=== PATIENT | male | born 1960 | race Caucasian/White ===

== ENCOUNTER 2018-12-01 08:46 | Inpatient (IN) | payer OTHER ==
[2018-12-01] MEDS ORDERED: ACETAMINOPHEN 1000 MG/100 ML VIAL (NON FORMULARY) IVPB ONE (09:31)
[2018-12-01] MEDS ORDERED: SODIUM CHLORIDE 1,000 ML IV STA (09:31)
--- NOTE | 2018-12-01 09:38 | PDOC ---
History of Present Illness - General Chief Complaint: Abscess Boil Stated Complaint: LT LEG BOIL Time Seen by Provider: 12/01/18 09:08 History Source: Patient Exam Limitations: No Limitations - History of Present Illness Initial Comments: 12/01/18 09:33 58 y/o male with PMH of diabetes presents to the ED with complaints of perianal/ perirecttal abscesses/ boils. Patient states that they started a few fays ago- he states that the pain is an 8/10. He tried putting warm compresses on them with little relief. He has suffered from these in the past. He was here about 3 years ago where he had to get them drained by a surgeon, and has intermittently had them about 3 more times. He denies any fevers however he does complain of slight chills. He doesn't feel that these are ready to start draining yet, however, they are very painful. he denies having any pain with urination or with bowel movements- he had a normal bowel movement this AM. he is compliant with his diabetes medications. he does have a family history of colon ca in his father, he has had 2 colonoscopies in the last 6 years both of which were normal. Timing/Duration: getting worse Modifying Factors: improves with: movement Associated Symptoms: denies: chest pain, cough, weakness Past History - Travel Traveled outside of the country in the last 30 days: No Close contact w/someone who was outside of country & ill: No - Past Medical History Allergies/Adverse Reactions: Allergies Allergy/AdvReac Type Severity Reaction Status Date / Time No Known Allergies Allergy Verified 12/01/18 09:34 Home Medications: Ambulatory Orders Canagliflozin [Invokana] 30 mg PO DAILY 02/23/15 Glimepiride 4 mg PO BID 12/01/18 Pioglitazone HCl 30 mg PO DAILY 12/01/18 COPD: No Diabetes: Yes - Family Disease History Family Disease History: CA: Father (colon) - Immunization History Immunization Up to Date: No - Suicide/Smoking/Psychosocial Hx Smoking History: Former smoker Have you smoked in the past 12 months: No Information on smoking cessation initiated: No 'Breaking Loose' booklet given: 02/25/15 Hx Alcohol Use: Yes Drug/Substance Use Hx: No Substance Use Type: None Review of Systems - Review of Systems Able to Perform ROS?: Yes Is the patient limited Spanish proficient: No Constitutional: Yes: Chills HEENTM: No: Blurred Vision Respiratory: No: Cough, Shortness of Breath Cardiac (ROS): No: Chest Pain, Palpitations : Yes: Other (perirectal/perineum abscess and pain) Musculoskeletal: No: Back Pain Neurological: No: Headache, Numbness *Physical Exam - Vital Signs Last Vital Signs Temp Pulse Resp BP Pulse Ox 98.3 F 108 H 18 121/80 95 12/01/18 08:55 12/01/18 08:55 12/01/18 08:55 12/01/18 08:55 12/01/18 08:55 - Physical Exam General Appearance: Yes: Mild Distress HEENT: positive: Normal Voice, Excessive drooling Respiratory/Chest: positive: Lungs Clear, Normal Breath Sounds Cardiovascular: positive: Regular Rhythm, Regular Rate, S1, S2 Gastrointestinal/Abdominal: positive: Normal Bowel Sounds, Flat, Soft. negative : Tender Male Genitalia: positive: other (B/L perieneum abscess with erythema ; no drainage; tenderness upon palpation) Rectal Exam: positive: normal exam, normal rectal tone. negative: hemorrhoids Musculoskeletal: negative: CVA Tenderness Extremity: positive: Normal Capillary Refill Integumentary: positive: Normal Color Neurologic: positive: Fully Oriented, Alert ED Treatment Course - RADIOLOGY Radiology Studies Ordered: Category Date Time Status PELVIS CT WITH CONTRAST [CT] Stat CT Scan 12/01/18 09:32 Ordered Medical Decision Making - Medical Decision Making 12/01/18 09:41 cbc/cmp/ck/blood cx/lactic acid IV tylneol/ fluids pelvis CT w/ contrast patient meets sepsis criteria: giving vanc/zosyn ekg/ CXR 12/01/18 10:09 *DC/Admit/Observation/Transfer - Discharge Dispostion Condition at time of disposition: Stable - Referrals Referrals: Claudio Perkins MD [Primary Care Provider] - - Patient Instructions - Post Discharge Activity
[2018-12-01] MEDS ORDERED: ACETAMINOPHEN INJECTION 100 ML IVPB ONE (09:39)
[2018-12-01] MEDS ORDERED: morphine CARPU-JECT 4 MG/1 ML DISP.SYRIN IVPUSH ONE (09:43)
--- NOTE | 2018-12-01 09:46 | PDOC ---
Attending Attestation - Resident Resident Name: Johanne Cameron - ED Attending Attestation I have performed the following: I have examined & evaluated the patient, The case was reviewed & discussed with the resident, I agree w/resident's findings & plan, Exceptions are as noted - HPI HPI: 12/01/18 16:39 Reviewed Residents HPI - Physicial Exam PE: 12/01/18 16:40 Reviewed Residents PE - Medical Decision Making 12/01/18 16:40 58 years old diabetic with perineal cellulitis and abscess below the scrotum No evidence of foreign's gangrene on CAT scan Broad-spectrum antibiotics ordered Surgery at the bedside for incision and drainage greater than 100 mL of pus drained Packed by surgery we'll admit to hospital for IV antibiotics and further management.
[2018-12-01] MEDS ORDERED: morphine SULFATE 4 MG/ML VIAL ONE (10:01)
[2018-12-01] MEDS ORDERED: VANCOMYCIN 1,000 MG in DEXTROSE 5%-WATER - 250 ML IVPB ONE (10:04)
[2018-12-01] MEDS ORDERED: PIPERACILLIN/TAZOB 3.375 GM 3.375 GM in DEXTROSE 5%-WATER - 50 ML IVPB ONE (10:04)
[2018-12-01] MEDS ORDERED: PIPERACILLIN/TAZOB 3.375 GM 3.375 GM/50 ML BAG IVPB ONE (10:25)
[2018-12-01] MEDS ORDERED: VANCOMYCIN 1 GRAM (PRE-DOCKED) 1,000 MG/250 ML BAG IVPB ONE (10:25)
[2018-12-01 10:41] LABS: BASO % 0.5 % (0-2.0); EOS % 0.4 % (0-4.5); HEMATOCRIT 46.9 % (35.4-49); HEMOGLOBIN 15.9 GM/dL (11.7-16.9); LYMPH % 13.1 % (8-40); MCH 28.6 pg (25.7-33.7); MCHC 33.9 g/dl (32.0-35.9); MEAN CELL VOLUME 84.3 fl (80-96); MEAN PLT VOLUME 7.7 fl (7.5-11.1); MONO % 7.6 % (3.8-10.2); NEUT % 78.4 % (42.8-82.8); PLATELET COUNT 281 K/MM3 (134-434); RBC 5.56 M/mm3 (4.00-5.60); RDW 13.1 % (11.9-15.9); WHITE BLOOD COUNT 12.2 K/mm3 (4.0-10.0)
[2018-12-01 11:24] LABS: ALBUMIN 3.4 g/dl (3.4-5.0); ALK PHOS 83 U/L (45-117); ANION GAP 10 MMOL/L (8-16); BILIRUBIN,TOTAL 0.9 mg/dL (0.2-1); BLOOD UREA NITROGEN 14 mg/dL (7-18); CALCIUM 8.8 mg/dL (8.5-10.1); CHLORIDE 105 mmol/L (98-107); CO2 19 mmol/L (21-32); CREATININE 0.7 mg/dL (0.55-1.3); GLUCOSE,RANDOM 154 mg/dL (74-106); POTASSIUM 3.8 mmol/L (3.5-5.1); SGOT/AST 11 U/L (15-37); SGPT/ALT 22 U/L (13-61); SODIUM 134 mmol/L (136-145); TOT PROT 7.4 g/dl (6.4-8.2)
--- NOTE | 2018-12-01 13:12 | PDOC ---
*Physical Exam - Vital Signs Last Vital Signs Temp Pulse Resp BP Pulse Ox 98.3 F 77 18 113/60 98 12/01/18 12:29 12/01/18 12:29 12/01/18 12:29 12/01/18 12:29 12/01/18 12:29 - Physical Exam Comments: 12/01/18 13:11 Signed out to me by Dr. Cameron ED Treatment Course - LABORATORY CBC & Chemistry Diagram: 12/01/18 09:53 12/01/18 09:53 - ADDITIONAL ORDERS Additional order review: Laboratory Results 12/01/18 12/01/18 12/01/18 10:00 09:53 09:53 PTT (Actin FS) 33.3 Sodium Potassium Chloride Carbon Dioxide Anion Gap BUN Creatinine Creat Clearance w eGFR Random Glucose Lactic Acid 1.1 Calcium Total Bilirubin AST ALT Alkaline Phosphatase Creatine Kinase Troponin I Total Protein Albumin Blood Type A POSITIVE Antibody Screen Negative 12/01/18 09:53 PTT (Actin FS) Sodium 134 L Potassium 3.8 Chloride 105 Carbon Dioxide 19 L Anion Gap 10 BUN 14 Creatinine 0.7 Creat Clearance w eGFR 115.83 Random Glucose 154 H Lactic Acid Calcium 8.8 Total Bilirubin 0.9 AST 11 L ALT 22 Alkaline Phosphatase 83 Creatine Kinase 62 Troponin I < 0.02 Total Protein 7.4 Albumin 3.4 Blood Type Antibody Screen 12/01/18 09:53 RBC 5.56 MCV 84.3 MCHC 33.9 RDW 13.1 MPV 7.7 Neutrophils % 78.4 Lymphocytes % 13.1 Monocytes % 7.6 Eosinophils % 0.4 Basophils % 0.5 - Medications Given in the ED: ED Medications Discontinued Medications Generic Name Dose Route Start Last Admin Trade Name Sandrine PRN Reason Stop Dose Admin Acetaminophen 1,000 mg 12/01/18 09:31 12/01/18 10:00 Ofirmev Injection - IVPB 12/01/18 09:32 1,000 mg ONCE ONE Administration Sodium Chloride 1,000 mls @ 1,000 mls/hr 12/01/18 09:31 12/01/18 10:00 Normal Saline - IV 12/01/18 10:30 1,000 mls/hr ASDIR STA Administration Vancomycin HCl 1,000 mg/ 250 mls @ 250 mls/hr 12/01/18 10:04 12/01/18 11:11 Dextrose IVPB 12/01/18 11:03 250 mls/hr ONCE ONE Administration Protocol Piperacillin Sod/Tazobactam 50 mls @ 100 mls/hr 12/01/18 10:04 12/01/18 10:34 Sod 3.375 gm/ Dextrose IVPB 12/01/18 10:33 100 mls/hr ONCE ONE Administration Protocol Morphine Sulfate 4 mg 12/01/18 09:43 12/01/18 10:00 Morphine Injection - IVPUSH 12/01/18 09:44 4 mg ONCE ONE Administration *DC/Admit/Observation/Transfer - Discharge Dispostion Condition at time of disposition: Stable - Referrals Referrals: Claudio Perkins MD [Primary Care Provider] - - Patient Instructions - Post Discharge Activity
--- NOTE | 2018-12-01 13:33 | HP ---
CHIEF COMPLAINT: " i have an abscess" PCP: Dr Perkins HISTORY OF PRESENT ILLNESS: This is a 58 yo M with PMH of NIDDM and perineal abscess drained in 2014, who presents with perianal/perirectal abscesses. The symptoms emerged 3 days ago including severe pain 8/10, redness, purulent drainage and chills. Symptoms not alleviated by warm compress. He reports 3 recurrences since 2015 drainage, which drained spontaneously. Patient denies fever, pain with urination or defecation, melena, hematochezia, hematuria, feces in urine. he denies abd pain, n/v/d/c, cp, sob. ER course was notable for: (1)labs (2)ct abd/pelvis,cxr (3)morphine, zosyn, vanco Recent Travel: denies PAST MEDICAL HISTORY: as above PAST SURGICAL HISTORY: as above Social History: Smoking: denies Alcohol: denies Drugs: denies Family History: htn Allergies No Known Allergies Allergy (Verified 12/01/18 09:34) HOME MEDICATIONS: Home Medications Medication Instructions Recorded Canagliflozin [Invokana] 30 mg PO DAILY 02/23/15 Glimepiride 4 mg PO BID 12/01/18 Pioglitazone HCl 30 mg PO DAILY 12/01/18 REVIEW OF SYSTEMS CONSTITUTIONAL: Absent: fever, diaphoresis, generalized weakness HEENT: Absent: rhinorrhea, nasal congestion, throat pain CARDIOVASCULAR: Absent: chest pain, syncope, palpitations, RESPIRATORY: Absent: cough, shortness of breath GASTROINTESTINAL: Absent: abdominal pain, abdominal distension, nausea, vomiting, diarrhea, constipation, melena, hematochezia GENITOURINARY: Absent: dysuria MUSCULOSKELETAL: Absent: back pain, neck pain SKIN: Absent: rash, itching, pallor HEMATOLOGIC/IMMUNOLOGIC: Absent: easy bleeding, easy bruising ENDOCRINE: Absent: unexplained weight gain, unexplained weight loss NEUROLOGIC: Absent: headache, focal weakness or paresthesias PSYCHIATRIC: Absent: anxiety, depression PHYSICAL EXAMINATION Vital Signs - 24 hr 12/01/18 12/01/18 12/01/18 08:55 10:03 12:29 Temperature 98.3 F 100.8 F H 98.3 F Pulse Rate 108 H Pulse Rate [ 77 Left Radial] Respiratory 18 18 Rate Blood Pressure 121/80 Blood Pressure 113/60 [Right Arm] O2 Sat by Pulse 95 98 Oximetry (%) GENERAL: Awake, alert, and fully oriented, in no acute distress. HEAD: Normal with no signs of trauma. EYES: extraocular movements intact, sclera anicteric, conjunctiva clear. EARS, NOSE, THROAT: Moist mucous membranes. NECK: supple LUNGS: Breath sounds equal, clear to auscultation bilaterally HEART: Regular rate and rhythm, normal S1 and S2 ABDOMEN: Soft, nontender, not distended, normoactive bowel sounds, no guarding, no rebound, no masses. Perianal abscess on L s/p drainage with packing and surrounding cellulitis. draining serosanguineous fluid. MUSCULOSKELETAL: No CVA tenderness. UPPER EXTREMITIES: 2+ pulses, warm, well-perfused. No cyanosis. No clubbing. No peripheral edema. LOWER EXTREMITIES: warm, well-perfused. No calf tenderness. No peripheral edema. NEUROLOGICAL: Cranial nerves II-XII grossly intact. Normal speech. PSYCHIATRIC: Cooperative. Good eye contact. Appropriate mood and affect. SKIN: Warm, dry Laboratory Results - last 24 hr 12/01/18 12/01/18 12/01/18 09:53 09:53 09:53 WBC 12.2 H RBC 5.56 Hgb 15.9 Hct 46.9 MCV 84.3 MCH 28.6 MCHC 33.9 RDW 13.1 Plt Count 281 MPV 7.7 Absolute Neuts (auto) 9.6 H Neutrophils % 78.4 Lymphocytes % 13.1 Monocytes % 7.6 Eosinophils % 0.4 Basophils % 0.5 Nucleated RBC % 0 PTT (Actin FS) 33.3 Sodium 134 L Potassium 3.8 Chloride 105 Carbon Dioxide 19 L Anion Gap 10 BUN 14 Creatinine 0.7 Creat Clearance w eGFR 115.83 Random Glucose 154 H Lactic Acid Calcium 8.8 Total Bilirubin 0.9 AST 11 L ALT 22 Alkaline Phosphatase 83 Creatine Kinase 62 Troponin I < 0.02 Total Protein 7.4 Albumin 3.4 Blood Type Antibody Screen 12/01/18 12/01/18 09:53 10:00 WBC RBC Hgb Hct MCV MCH MCHC RDW Plt Count MPV Absolute Neuts (auto) Neutrophils % Lymphocytes % Monocytes % Eosinophils % Basophils % Nucleated RBC % PTT (Actin FS) Sodium Potassium Chloride Carbon Dioxide Anion Gap BUN Creatinine Creat Clearance w eGFR Random Glucose Lactic Acid 1.1 Calcium Total Bilirubin AST ALT Alkaline Phosphatase Creatine Kinase Troponin I Total Protein Albumin Blood Type A POSITIVE Antibody Screen Negative ASSESSMENT/PLAN: This is a 58 yo M with PMH of NIDDM and perineal abscess drained in 2014, who presents with perianal/perirectal abscesses. Left perianal abscess with cellulitis s/p I and D POD d 0 NIDDM -pain management with tylenol and oxicodone prn -daily wound packing -iv clindamycin 600 q 8 -f/u cultures (previously grew cavanaugh sensitive e coli) -ISS bgm achs -DTV PPX SCd's, early ambulation -diabetic diet Problem List - Problem (1) Diabetes Code(s): E11.9 - TYPE 2 DIABETES MELLITUS WITHOUT COMPLICATIONS Qualifiers: Diabetes mellitus type: type 2 Qualified Code(s): E11.9 - Type 2 diabetes mellitus without complications (2) Perineal abscess Code(s): L02.215 - CUTANEOUS ABSCESS OF PERINEUM (3) Cellulitis and abscess of buttock Code(s): L02.31 - CUTANEOUS ABSCESS OF BUTTOCK; L03.317 - CELLULITIS OF BUTTOCK Visit type - Emergency Visit Emergency Visit: Yes ED Registration Date: 12/01/18 Care time: The patient presented to the Emergency Department on the above date and was hospitalized for further evaluation of their emergent condition. - New Patient This patient is new to me today: Yes Date on this admission: 12/01/18 - Critical Care Critical Care patient: No
[2018-12-01] MEDS ORDERED: LIDOCAINE 1%/EPI 1:100000 (20 ML MULTI DOSE VIAL) IJ ONE (13:53)
[2018-12-01] MEDS ORDERED: LIDOCAINE HCL 1%, 10 MG/ML (20ML VIAL) ONE (13:55)
--- NOTE | 2018-12-01 14:26 | PN ---
Progress Note (short form) - Note Progress Note: surgery I&d done with 100 pus from anam-rectal abscess. remove packing in am and sitz bath tid. ok to shower. abx per medical team. f/u in 1-2 months or sooner prn to evaluate for fistula. [phone]
[2018-12-01] MEDS ORDERED: ACETAMINOPHEN 325 MG TABLET (FP) PO PRN (14:45)
[2018-12-01] MEDS ORDERED: oxyCODONE HCL 5 MG TABLET PO PRN (14:45)
[2018-12-01 15:54] VITALS: BMI 36.8
--- NOTE | 2018-12-01 16:06 | OP ---
DATE OF OPERATION: 12/01/2018 PROCEDURE PERFORMED: Incision and drainage of perirectal abscess, done in the emergency room. SURGEON: Buck Gonzalez DO BOOKING PRIZER: None. ANESTHESIA: Local. BRIEF HISTORY: This is a 58-year-old male with a history of a perirectal abscess that had been incised and drained in the past. He had a colonoscopy approximately 5 years ago. He presents with recurrence. He had a CAT scan showing a large abscess, and the emergency room physician requested surgical incision and drainage. The patient had no allergies and was being admitted for antibiotics. DESCRIPTION OF PROCEDURE: The patient was placed in the lateral recumbent position with the right side up. At the 1 o'clock position, as visualized in the there was a small opening with a large amount of pus already draining. Lidocaine was used to anesthetize this area. An incision is made extending toward his scrotum and perineum, along the abscess cavity tract, approximately 2 inches in length. Approximately 100 mL of bloody anaerobic-smelling pus was expressed, irrigated, and gauze packing was placed. PLAN: The patient will have his packing removed tomorrow by the floor nurses. He will then do sitz baths 3 times a day with Epsom salts. Antibiotics per the medical team. He will follow with me in 1 to 2 months to ensure that this closes and does not form a fistula. I suspect that he does have a chronic fistula here that got worse. He understands that if there is a fistula, he may require further intervention by colorectal surgery. ESTIMATED BLOOD LOSS: Approximately 10 mL. FINDINGS: Pus 100 mL. DRAINS: None. COMPLICATIONS: None. DO EDWIN DAMON/[id number]
[2018-12-01] MEDS: INSULIN SLIDING SCALE (NOVOLOG) 1 VIAL SQ SCH ×2 (17:14→22:02)
[2018-12-01] MEDS ORDERED: CLINDAMYCIN 600MG PREMIX IVPB 600 MG/50 ML BAG IVPB SCH (18:00)
--- NOTE | 2018-12-01 19:51 | PN ---
Progress Note (short form) - Note Progress Note: ID CONSULT DICTATED PERIRECTAL ABSCESS S/P DRAINAGE DIABETES MELLITUS CONTINUE EMPIRIC LEVAQUIN/ FLAGYL
--- NOTE | 2018-12-01 20:17 | PN ---
Teaching Attending Note Name of Resident: Nicole Gibson ATTENDING PHYSICIAN STATEMENT I saw and evaluated the patient. I reviewed the resident's note and discussed the case with the resident. I agree with the resident's findings and plan as documented. SUBJECTIVE: seen and examined at bedside. feeling better after I &D. no complaints. states this has happened twice before. last hba1c he remembers is around 7, never been on insulin before. OBJECTIVE: Vital Signs Period Temp Pulse Resp BP Sys/Tidwell Pulse Ox Last 24 Hr 98.3 F-100.8 F 77-108 18-18 113-126/60-80 95-100 Laboratory 12/01/18 12/01/18 12/01/18 09:53 09:53 09:53 WBC 12.2 K/mm3 H K/mm3 (4.0-10.0) RBC 5.56 M/mm3 M/mm3 (4.00-5.60) Hgb 15.9 GM/dL GM/dL (11.7-16.9) Hct 46.9 % % (35.4-49) MCV 84.3 fl fl (80-96) MCH 28.6 pg pg (25.7-33.7) MCHC 33.9 g/dl g/dl (32.0-35.9) RDW 13.1 % % (11.9-15.9) Plt Count 281 K/MM3 K/MM3 (134-434) MPV 7.7 fl fl (7.5-11.1) Absolute Neuts (auto) 9.6 K/mm3 H K/mm3 (1.5-8.0) Neutrophils % 78.4 % % (42.8-82.8) Lymphocytes % 13.1 % % (8-40) Monocytes % 7.6 % % (3.8-10.2) Eosinophils % 0.4 % % (0-4.5) Basophils % 0.5 % % (0-2.0) Nucleated RBC % 0 % % (0-0) PTT (Actin FS) 33.3 SECONDS SECONDS (25.2-36.5) Sodium 134 mmol/L L mmol/L (136-145) Potassium 3.8 mmol/L mmol/L (3.5-5.1) Chloride 105 mmol/L mmol/L (98-107) Carbon Dioxide 19 mmol/L L mmol/L (21-32) Anion Gap 10 MMOL/L MMOL/L (8-16) BUN 14 mg/dL mg/dL (7-18) Creatinine 0.7 mg/dL mg/dL (0.55-1.3) Creat Clearance w eGFR 115.83 (>60) POC Glucometer Random Glucose 154 mg/dL H mg/dL (74-106) Lactic Acid Calcium 8.8 mg/dL mg/dL (8.5-10.1) Total Bilirubin 0.9 mg/dL mg/dL (0.2-1) AST 11 U/L L U/L (15-37) ALT 22 U/L U/L (13-61) Alkaline Phosphatase 83 U/L U/L (45-117) Creatine Kinase 62 U/L U/L (26-308) Troponin I < 0.02 ng/ml ng/ml (0.00-0.05) Total Protein 7.4 g/dl g/dl (6.4-8.2) Albumin 3.4 g/dl g/dl (3.4-5.0) Blood Type Antibody Screen 12/01/18 12/01/18 12/01/18 09:53 10:00 17:08 WBC RBC Hgb Hct MCV MCH MCHC RDW Plt Count MPV Absolute Neuts (auto) Neutrophils % Lymphocytes % Monocytes % Eosinophils % Basophils % Nucleated RBC % PTT (Actin FS) Sodium Potassium Chloride Carbon Dioxide Anion Gap BUN Creatinine Creat Clearance w eGFR POC Glucometer 155 UNITS UNITS (80-120) Random Glucose Lactic Acid 1.1 mmol/L mmol/L (0.4-2.0) Calcium Total Bilirubin AST ALT Alkaline Phosphatase Creatine Kinase Troponin I Total Protein Albumin Blood Type A POSITIVE Antibody Screen Negative Current Medications Generic Name Dose Route Start Last Admin Trade Name Freq PRN Reason Stop Dose Admin Acetaminophen 650 mg 12/01/18 14:45 Tylenol - PO Q4H PRN PAIN LEVEL 1-5 Metronidazole 500 mg in 100 mls @ 100 mls/hr 12/01/18 18:00 12/01/18 18:26 Flagyl 500mg Premixed Ivpb - IVPB 100 mls/hr Q8H-IV MYRNA Administration Levofloxacin 500 mg in 100 mls @ 100 mls/hr 12/01/18 16:45 12/01/18 17:04 Levaquin 500 Mg Premixed Ivpb - IVPB 100 mls/hr DAILY MYRNA Administration Insulin Aspart 1 vial 12/01/18 16:30 12/01/18 17:14 Novolog Vial Sliding Scale - SQ 2 units ACHS MYRNA Administration Protocol Lactobacillus Acidophilus 1 tab 12/02/18 10:00 Bacid - PO DAILY MYRNA Oxycodone HCl 5 mg 12/01/18 14:45 12/01/18 17:05 Roxicodone - PO 5 mg Q4H PRN Administration PAIN LEVEL 6-10 ALL IMAGING REPORTS REVIEWED PHYSICAL EXAM: GENERAL: NAD CVS: S1S2 RRR, NO MRG ABDOMEN SOFT, NTND, NABS LUNGS: CTA BL, NO W/R/R, UNLABORED EXT: NO C/C/E RECTAL: PACKED LEFT PERIrectal ABSCESS ASSESSMENT AND PLAN: 58 year old male PMHx DM2 and recurrent perirectal abscess presents with rectal pain 1) Left perirectal abscess s/p I and D in ED in a diabetic male -c/w wound care -follow cultures (last culture grew pansens ecoli) -cipro and flagyl -pain mngmt -needs optimum blood sugar control, resume home meds and ISS for supplemental coverage
[2018-12-02] MEDS: INSULIN SLIDING SCALE (NOVOLOG) 1 VIAL SQ SCH ×2 (06:11→12:04)
[2018-12-02 07:22] LABS: BASO % 0.6 % (0-2.0); EOS % 2.6 % (0-4.5); HEMATOCRIT 44.7 % (35.4-49); HEMOGLOBIN 15.2 GM/dL (11.7-16.9); LYMPH % 27.8 % (8-40); MCH 28.9 pg (25.7-33.7); MEAN CELL VOLUME 84.9 fl (80-96); MEAN PLT VOLUME 7.6 fl (7.5-11.1); MONO % 8.6 % (3.8-10.2); NEUT % 60.4 % (42.8-82.8); PLATELET COUNT 270 K/MM3 (134-434); RBC 5.26 M/mm3 (4.00-5.60); RDW 13.3 % (11.9-15.9); WHITE BLOOD COUNT 7.8 K/mm3 (4.0-10.0)
[2018-12-02 07:33] LABS: ANION GAP 8 MMOL/L (8-16); BLOOD UREA NITROGEN 13 mg/dL (7-18); CALCIUM 8.7 mg/dL (8.5-10.1); CHLORIDE 105 mmol/L (98-107); CO2 22 mmol/L (21-32); CREATININE 0.7 mg/dL (0.55-1.3); GLUCOSE,RANDOM 128 mg/dL (74-106); MAGNESIUM 2.3 mg/dL (1.8-2.4); PHOSPHOROUS 3.1 mg/dL (2.5-4.9); POTASSIUM 3.9 mmol/L (3.5-5.1); SODIUM 135 mmol/L (136-145)
[2018-12-02] MEDS ORDERED: LACTOBACILLUS ACIDOPHILUS 1 TABLET PO SCH (10:00)
--- NOTE | 2018-12-02 13:37 | CONS ---
INFECTIOUS DISEASE CONSULTATION DATE OF CONSULTATION: 12/01/2018 HISTORY OF PRESENT ILLNESS: The patient is a 58-year-old male with a prior history of perianal abscess, now admitted for recurrent abscess. He presented to the emergency room on December 01, 2018, with worsening perianal pain. He had had a history of perianal abscess in 2014 which required surgical drainage. At that time, cultures were positive for pansensitive E coli. He reports that since that time, he has had episodes with intermittent drainage from the perineum which resolved spontaneously. This time, however, he had worsening swelling of the perineal area associated with pain. He continued to have pain and swelling despite warm compresses. He presented to the emergency room where he was seen in consultation by Surgery and an incision and drainage was performed. No culture results are available. He was empirically treated with Levaquin and Flagyl. He denies any associated fever or chills. No urinary tract complaints. No diarrhea. PAST MEDICAL HISTORY: Positive for [id number] diabetes mellitus, history of perianal abscess 2014, status post incision and drainage, positive culture for E coli. ALLERGIES: No known allergies. MEDICATIONS: Invokana and glimepiride. SOCIAL HISTORY: He lives at home in the community. He is a former smoker. SYSTEMS REVIEW: Neurologic: No loss of consciousness, seizure activity, focal weakness. Cardiac: Negative chest pain or palpitations. Respiratory: Negative cough or sputum production. Gastrointestinal: Negative vomiting or diarrhea. Genitourinary: Negative for urinary tract infection. LABORATORY DATA: White count 12.2, hematocrit 46.9, platelet count 281. Creatinine 0.7. Liver enzymes normal. IMAGING: Chest x-ray: Negative for acute infiltrate. CAT scan of the pelvis: Large left perineal air and fluid collection consistent with abscess. PHYSICAL EXAMINATION: General: He is awake and alert. He is in moderate pain, secondary to incision and drainage. Vital Signs: T-maximum 100.8, blood pressure 124/78, pulse 78 regular, respirations 18 per minute. Eyes: Sclerae are anicteric. Heart: Heart sounds S1, S2. Lungs: Clear bilaterally. Abdomen: Soft and nontender. Perineum: There is a surgical incision present in the perineum with packing in place. Bloody drainage is noted on the dressing. There is tenderness, no surrounding erythema. IMPRESSION: 1. Perirectal abscess, status post incision and drainage. 2. Diabetes mellitus. Continue empiric Levaquin and Flagyl. It appears no wound culture was sent. Continue empiric coverage of mixed pathogens. Outpatient referral to Colorectal Surgery to assess for possible fistula. Thank you for the kind referral. BURAK CASTRO M.D. [facility]AL[facility]/[id number]
[2018-12-02 15:03] VITALS: BP 129/73; PULSE 72; TEMP 98.1
--- NOTE | 2018-12-02 15:10 | PN ---
Teaching Attending Note Name of Resident: Rossi Lester ATTENDING PHYSICIAN STATEMENT I saw and evaluated the patient. I reviewed the resident's note and discussed the case with the resident. I agree with the resident's findings and plan as documented. SUBJECTIVE: No fever or chills. No JONES , no abd pain. no painin gluteal area. No dysuria OBJECTIVE: NAD Cv : RRr Lungs: CTAB Ext : no edema or erythema skin: perineal area with a packed wound. with induration but minimal tenderness. no discharge noted. pt refused removal of pacing ASSESSMENT AND PLAN: 58 y/o man with h/o Dm and perianal abscess who anam-anal abscess who presented with pain in anam-anal area and was found to have an abscess 1- Anam-anal abscess: s/p I&D . - remove packing - sitz baths at home - abx for 7 more days - No cx sent form wound - f/u with sx to evaluate for a fistula - tylenol and ibuprofen for pain 2- Dm : cont home meds dispo : mt home
--- NOTE | 2018-12-02 15:37 | PN ---
Progress Note, Physician History of Present Illness: NO C/O PERIANAL PAIN TEMPS DOWN AFEBRILE WBC IMPROVED WNL BC (-) - Current Medication List Current Medications: Active Medications Acetaminophen (Tylenol -) 650 mg PO Q4H PRN PRN Reason: PAIN LEVEL 1-5 Metronidazole (Flagyl 500mg Premixed Ivpb -) 500 mg in 100 mls @ 100 mls/hr IVPB Q8H-IV MYRNA Last Admin: 12/02/18 10:50 Dose: 100 mls/hr Levofloxacin (Levaquin 500 Mg Premixed Ivpb -) 500 mg in 100 mls @ 100 mls/hr IVPB DAILY [facility] Last Admin: 12/02/18 10:50 Dose: 100 mls/hr Insulin Aspart (Novolog Vial Sliding Scale -) 1 vial SQ ACHS [facility]; Protocol Last Admin: 12/02/18 12:04 Dose: Not Given Lactobacillus Acidophilus (Bacid -) 1 tab PO DAILY [facility] Last Admin: 12/02/18 10:50 Dose: 1 tab Oxycodone HCl (Roxicodone -) 5 mg PO Q4H PRN PRN Reason: PAIN LEVEL 6-10 Last Admin: 12/01/18 17:05 Dose: 5 mg - Objective Vital Signs: Vital Signs Temperature 98.1 F 12/02/18 14:58 Pulse Rate 72 12/02/18 14:58 Respiratory Rate 20 12/02/18 14:58 Blood Pressure 129/73 12/02/18 14:58 O2 Sat by Pulse Oximetry (%) 100 12/02/18 09:00 Constitutional: Yes: No Distress Eyes: Yes: Conjunctiva Clear Cardiovascular: Yes: Regular Rate and Rhythm, S1, S2 Respiratory: Yes: CTA Bilaterally Gastrointestinal: Yes: Normal Bowel Sounds, Soft. No: Tenderness Genitourinary: Yes: Other (PERINEAL WOUND WITH PACKING REMOVED; NO PURULENT DRAINAGE) Edema: No Labs: CBC, BMP 12/02/18 06:00 12/02/18 06:00 Assessment/Plan S/P I&D PERIRECTAL ABSCESS DIABETES MELLITUS OK FOR DISCHARGE FROM ID STANDPOINT ON LEVAQUIN 500MG PO QD + FLAGYL 500MG PO TID FOR ADDITIONAL 7D OUTPATIENT SURGICAL F/U
--- NOTE | 2018-12-02 16:10 | DS ---
Physical Exam: SUBJECTIVE: Patient seen and examined at bedside this morning. No acute events overnight. Patient has no complaints this morning. Packing removed this afternoon, no active bleeding noted. OBJECTIVE: Vital Signs Temperature 98.1 F 12/02/18 14:58 Pulse Rate 72 12/02/18 14:58 Respiratory Rate 20 12/02/18 14:58 Blood Pressure 129/73 12/02/18 14:58 O2 Sat by Pulse Oximetry (%) 100 12/02/18 09:00 PHYSICAL EXAM GENERAL: The patient is awake, alert, and fully oriented, in no acute distress. HEAD: Normal with no signs of trauma. EYES:PERRLA, EOMI, sclera anicteric, conjunctiva clear. ENT: oropharynx clear without exudates, moist mucous membranes. NECK: Trachea midline, full range of motion, supple. LUNGS: Breath sounds equal, clear to auscultation bilaterally. HEART: Regular rate and rhythm, S1, S2 without murmur, rub or gallop. ABDOMEN: Soft, nontender, nondistended, normoactive bowel sounds. EXTREMITIES: 2+ pulses, warm, well-perfused, no edema. NEUROLOGICAL: Cranial nerves II through XII grossly intact. Normal speech, normal gait. PSYCH: Normal mood, normal affect. SKIN: Open wound in the perineal area. Minimal tenderness, no discharge or pus, no active bleeding noted. LABS Laboratory Results - last 24 hr 12/01/18 12/01/18 12/02/18 17:08 21:17 06:00 WBC 7.8 RBC 5.26 Hgb 15.2 Hct 44.7 MCV 84.9 MCH 28.9 MCHC 34.0 RDW 13.3 Plt Count 270 MPV 7.6 Absolute Neuts (auto) 4.7 Neutrophils % 60.4 D Lymphocytes % 27.8 D Monocytes % 8.6 Eosinophils % 2.6 D Basophils % 0.6 Nucleated RBC % 0 Sodium Potassium Chloride Carbon Dioxide Anion Gap BUN Creatinine Creat Clearance w eGFR POC Glucometer 155 136 Random Glucose Calcium Phosphorus Magnesium 12/02/18 12/02/18 12/02/18 06:00 06:09 12:03 WBC RBC Hgb Hct MCV MCH MCHC RDW Plt Count MPV Absolute Neuts (auto) Neutrophils % Lymphocytes % Monocytes % Eosinophils % Basophils % Nucleated RBC % Sodium 135 L Potassium 3.9 Chloride 105 Carbon Dioxide 22 Anion Gap 8 BUN 13 Creatinine 0.7 Creat Clearance w eGFR 115.83 POC Glucometer 145 148 Random Glucose 128 H Calcium 8.7 Phosphorus 3.1 Magnesium 2.3 HOSPITAL COURSE: Date of Admission:12/01/18 Date of Discharge: 12/02/18 Patient is a 58 year old male with past medical history of NIDDM and hx of perianal abscess (drained in 2014), presented with perianal abscess. Surgery was consulted. Incision and drainage was done, 100cc of purulent fluid drained. IV Levaquin and Flagyl started. Pain control with Tylenol and oxycodone. Patient remained stable overnight with minimal bleeding or pain on surgical site. The next day, packing was removed. Patient was discharged with instructions to do sitz bath 3 times a day, and to follow up with surgery in a month or earlier to evaluate for fistula. Levaquin and Flagyl to continue for 7 days. Minutes to complete discharge: 37 Discharge Summary Reason For Visit: ABSCESS OF PERINEUM Current Active Problems Cellulitis and abscess of buttock (Acute) Condition: Improved - Instructions Diet, Activity, Other Instructions: Your visit You were admitted to the hospital because you had an abscess at the buttock area. You had debridement done by surgery. Medications Please take the following medications: 1. Levaquin 500mg daily for 7 days. 2. Flagyl 500gm three times a day for 7 days. Follow up Please follow up with your primary care doctor (Dr. Perkins) within 1 week. Please follow up with the surgeon (Dr. Mercado). Please call the office at [phone] to schedule an appointment. need to rule out a fistula ( connection with your bowel ) Ludin Coombs M.D. Buck Mercado D.O. [address], [address] [place], [place] [address] Post Anesthesia/IV Sedation Do not drive a motor vehicle or drink alcohol for the next 24 hours. Physical Activity Resume normal everyday activity as tolerated. No heavy lifting or exercise until seen by your surgeon. You may walk unlimited amounts and climb stairs. You may resume driving a car when you feel safe and comfortable behind the wheel. Wound Care / Bathing Please do sitz baths 3 times a day for at least 5 minutes with Epsom salts. Keep the wound clean and dry at all times. The wound will drain for a few days. There is no need to cover the wound. You may wear pull-ups to keep yourself dry and not get your clothes. Diet There are no dietary restrictions. Eat healthy, high fiber foods. Drink 6-8 glasses of fluid each day. This will assist in keeping your bowels regular. Pain Management You may take Tylenol (Acetaminophen) or Ibuprofen (Motrin, Advil, etc) for mild pain. Prescription medication, if ordered, should be taken as prescribed for moderate to severe pain. CALL DR. ZABALA / DR. COOMBS / DR. MERCADO FOR ANY OF THE FOLLOWING: * Severe pain not relieved by medication * Fever of 101 or higher * Excessive bleeding or drainage on dressing * Inability to urinate Call the office at [phone] for an appointment in 10-14 days. Referrals: Claudio Perkins MD [Primary Care Provider] - Buck Mercado MD [Staff Physician] - Disposition: HOME - Home Medications Comprehensive Discharge Medication List: Ambulatory Orders Canagliflozin [Invokana] 300 mg PO DAILY 02/23/15 Glimepiride 4 mg PO BID 12/01/18 Pioglitazone HCl 30 mg PO DAILY 12/01/18 Acetaminophen [Tylenol Extra Strength] 500 mg PO Q6H PRN #30 tablet MDD 3000 10/18 Ibuprofen 400 mg PO Q6H PRN #30 tablet 12/02/18 Lactobacillus Acidophilus [Bacid -] 1 tab PO DAILY #15 tab 12/02/18 levoFLOXacin [Levaquin -] 500 mg PO DAILY #7 tablet 12/02/18 metroNIDAZOLE [Flagyl -] 500 mg PO TID #21 tablet 12/02/18 This patient is new to me today: Yes Date on this admission: 12/02/18 Emergency Visit: Yes ED Registration Date: 12/01/18 Care time: The patient presented to the Emergency Department on the above date and was hospitalized for further evaluation of their emergent condition. Critical Care patient: No - Discharge Referral Referred to [facility] No
== END 2018-12-02 17:10 | disposition home or self-care (01) | DRG 345 ==
LOC: JER 08:46 → JERBED 13:20 → J5S 15:03
PROVIDERS: ADMIT Internal Medicine; ATTEND Internal Medicine
PROC: 0D9P0ZX Drainage of Rectum, Open Approach, Diagnostic (ICD-10-PCS; principal; 2018-12-01)
DX: K61.1 Rectal abscess (principal); L03.317 Cellulitis of buttock; L02.215 Cutaneous abscess of perineum; E11.9 Type 2 diabetes mellitus without complications
CPT/HCPCS: 36415; 71045-TC-FY; 72193-TC; 80048; 80053; 82550; 82962; 83605; 83735; 84100; 84484; 85025; 85730; 86850; 86900; 86901; 87040; 99285-25; J0131; J7030